=== PATIENT | female | born 1970 ===

== ENCOUNTER 2021-05-04 23:08 | Emergency (ER) | payer SELFPAY ==
[2021-05-05] MEDS ORDERED: TETANUS,DIPH,PERTUSS(ACELL) VACCINE 0.5 ML SYRINGE IM ONE (00:39)
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
[2021-05-05] MEDS ORDERED: HYDROcodone/ACETAMINOPHEN 5-325 MG TAB PO ONE (03:06)
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
[2021-05-05 04:38] VITALS: BP 148/79
== END 2021-05-05 04:36 | disposition home or self-care (01) ==
LOC: ED 23:08
DX: S01.81XA Laceration without foreign body of other part of head, initial encounter (principal); Z79.899 Other long term (current) drug therapy; V87.7XXA Person injured in collision between other specified motor vehicles (traffic), initial encounter; Y93.89 Activity, other specified; Y92.488 Other paved roadways as the place of occurrence of the external cause; Y99.8 Other external cause status
CPT/HCPCS: 70450; 70486; 90471; 90715; 96372; 99283